=== PATIENT | female | born 1985 | race Caucasian/White ===

== ENCOUNTER 2023-02-24 10:07 | Emergency (ER) | payer OTHER, SELFPAY ==
[2023-02-24 10:15] VITALS: BP 129/87; PULSE 124; RESP 18; TEMP 36.3; O2SAT 92; BMI 46.1
--- NOTE | 2023-02-24 10:31 | CRLHL7_ITS ---
For Patients: As a result of the Century Cures Act, medical imaging exams and procedure reports are released immediately into your electronic medical record. You may view this report before your referring provider. If you have questions, please contact your health care provider. INDICATION: SOB HISTORY: Shortness of breath. COMPARISON: 03/30/2019. TECHNIQUE: Chest, 2 views. FINDINGS: Heart size and pulmonary vasculature are within normal limits. There are right middle lobe infiltrates present. Pneumonia is suspected. Radiographic followup is advised to document resolution. There is no sizable pleural effusion. There is no pneumothorax. The osseous structures are intact. IMPRESSION: 1. Right middle lobe infiltrate is consistent with pneumonia. 2. Radiographic followup is advised to document resolution. Dictated by Mil Graf MD @ 02/24/2023 10:56:48 AM Dictated by: Mil Graf MD @ 02/24/2023 10:56:55 (Electronically Signed)
[2023-02-24 10:50] LABS: Basophils Absolute Auto 0.03 K/uL (0.00-0.30); Basophils Percent Auto 0.4 % (0.0-3.0); Eosinophils Absolute Auto 0.34 K/uL (0.00-0.50); Eosinophils Percent Auto 4.5 % (0.0-7.0); Hematocrit 47.8 % (33.0-51.0); Hemoglobin* 15.9 gm/dL (12.0-16.0); Immature Granulocytes Abs Auto 0.03 K/uL (0.00-0.30); Immature Granulocytes Pct Auto 0.4 %; Lymphocytes Percent Auto 19.4 % (20-44); Mean Corpuscular HGB Conc 33 gm/dL (32-36); Mean Corpuscular Hemoglobin 29 pg (26-34); Mean Corpuscular Volume 88 fL (80-100); Monocytes Percent Auto 8.7 % (0.0-11.0); Neutrophils Absolute Auto 4.99 K/uL (1.7-7.0); Neutrophils Percent Auto 66.6 % (42.0-72.0); Platelet Count* 326 K/uL (140-440); Red Blood Count 5.41 m/uL (4.00-5.20); White Blood Count* 7.49 K/uL (4.50-11.00)
[2023-02-24] MEDS: predniSONE 10 MG TABLET 50 MG PO (10:58)
--- NOTE | 2023-02-24 10:58 | ED.GENADULT ---
HPI - General Adult General Chief complaint: Asthma Stated complaint: Trouble breathing Time Seen by Provider: 02/24/23 10:10 Source: patient Mode of arrival: ambulatory Limitations: no limitations History of Present Illness HPI narrative: 37-year-old female sent over from the urgent care for shortness of breath. Patient has history of asthma and has been having increasing shortness of breath for the last 4 days. She denies any fevers or chills. States that she coughs all day long and has a hard time controlling herself. Cough is generally nonproductive. She had an asthma attack on Sunday and has not seem to recover. She has been using her albuterol nebulizer every 3 hours without significant improvement. She states that this has happened to her before and she developed pneumonia. She had no treatment or workup done in the urgent care. Patient has a past medical history significant for obesity, asthma, hypertension, hyperlipidemia. Related Data Home Medications Medication Instructions Recorded Confirmed albuterol sulfate 90 mcg/actuation 1 - 2 puff inhalation Q4H PRN 02/24/23 02/24/23 aerosol inhaler dyspnea aspirin 81 mg tablet,delayed 81 mg PO DAILY 02/24/23 02/24/23 release dapagliflozin 10 mg tablet 10 mg PO DAILY 02/24/23 02/24/23 (Farxiga) fluticasone 250 mcg-salmeterol 50 1 ea inhalation 02/24/23 mcg/dose blistr powdr for inhalation (Advair Diskus) glipizide 10 mg tablet mg PO BID 02/24/23 ipratropium 0.5 mg-albuterol 3 mg 3 ml inhalation QID PRN dyspnea 02/24/23 02/24/23 (2.5 mg base)/3 mL nebulization soln lisinopril 5 mg tablet 5 mg PO DAILY 02/24/23 02/24/23 rosuvastatin 10 mg tablet 10 mg PO QPM 02/24/23 02/24/23 Previous Rx's Medication Instructions Recorded amoxicillin 500 mg tablet 1,000 mg PO TID 5 days #15 tabs 02/24/23 azithromycin 250 mg tablet 250 mg PO .As instructed #6 tabs 02/24/23 prednisone 20 mg tablet 20 mg PO DIRECTED 9 days #18 02/24/23 tabs Allergies Allergy/AdvReac Type Severity Reaction Status Date / Time cefuroxime [From Ceftin] Allergy Intermediate Verified 02/24/23 10:20 Review of Systems Status of ROS: Reports: 10 or more systems reviewed and unremarkable except as noted in History and below Exam Narrative: Exam Narrative: Obese, well-developed patient in no acute distress, coughs frequently. Alert and oriented. Answers questions appropriately. Mood and affect are appropriate. Thoughts are goal oriented and rational. Patient speaks in full sentences without needing to catch their breath. Patient is tachycardic, however not tachypneic. Saturating anywhere from 90-94% on room air. HEENT: Normocephalic atraumatic. Pupils are equally round reactive to light. Extraocular muscles are intact. Conjunctivae are moist without any icterus noted. Moist mucous membranes. Posterior pharynx is normal. Neck is soft without any lymphadenopathy or thyromegaly. No masses are appreciated. Cardiovascular: Heart is regular rate and rhythm S1 and S2 are present without any murmurs. Lungs: Patient has crackles on the right side. She has no wheezing noted. Abdomen: Soft and nontender nondistended with normal bowel sounds. Skin: Well perfused without any obvious rashes. Const: Vital Signs, click to edit/add: Vital Signs - 24 hr 02/24/23 10:15 Temperature 97.3 F L Pulse Rate [Pulse Oximeter] 124 H Respiratory Rate 18 Blood Pressure [Ri ght Upper Arm] 129/87 Pulse Oximetry 92 Oxygen Delivery Me thod Room Air Course Course Hospital Course: Patient was given oral prednisone. Breathing treatment was not done since the patient did not have any wheezing present. CBC was unremarkable. Chest x-ray was consistent with a right-sided pneumonia which was consistent with the abnormality on her physical exam. We did ambulate the patient to assess her oxygenation and she just dropped to 88% briefly and then quickly recovers, while still ambulating, to the low 90s. Vital Signs Vital signs: Initial Vital Signs Temperature 97.3 F L 02/24/23 10:15 Temperature Source Temporal Artery Scan 02/24/23 10:15 Pulse Rate 124 H 02/24/23 10:15 Respiratory Rate 18 02/24/23 10:15 Blood Pressure 129/87 02/24/23 10:15 Blood Pressure Mean 101 02/24/23 10:15 Blood Pressure Position Sitting 02/24/23 10:15 Pulse Oximetry 92 02/24/23 10:15 Oxygen Delivery Method Room Air 02/24/23 10:15 Vital Signs Temperature 97.3 F L 02/24/23 10:15 Pulse Rate 124 H 02/24/23 10:15 Respiratory Rate 18 02/24/23 10:15 Blood Pressure 129/87 02/24/23 10:15 Pulse Oximetry 92 02/24/23 10:15 Oxygen Delivery Method Room Air 02/24/23 10:15 Temperature 97.3 F L 02/24/23 10:15 Pulse Rate 124 H 02/24/23 10:15 Respiratory Rate 18 02/24/23 10:15 Blood Pressure 129/87 02/24/23 10:15 Pulse Oximetry 92 02/24/23 10:15 Oxygen Delivery Method Room Air 02/24/23 10:15 Medical Decision Making MDM Narrative Medical decision making narrative: 37-year-old female with pneumonia and asthma exacerbation. We discussed hospitalization at this time given that she is tachycardic and her oxygenation does drop below 90. Patient states that she does not wish to be hospitalized at this time and she feels like she can manage at home. given that she is otherwise young and believes that she can manage at home patient will be discharged at this time. She will be placed on on amoxicillin, azithromycin and prednisone. She has nebulizers at home that she will continue to use p.r.n.. And she understands that if she is worsening at all, I would have a very low threshold to return to the ER and patient is in agreement with this. Medical Records Medical records reviewed: Yes I reviewed the patient's medical records Lab Data Lab results reviewed: Yes I reviewed the patient's lab results Labs: Lab Results 02/24/23 Range/Units 10:45 WBC 7.49 (4.50-11.00) K/uL RBC 5.41 H (4.00-5.20) m/uL Hgb 15.9 (12.0-16.0) gm/dL Hct 47.8 (33.0-51.0) % MCV 88 (80-100) fL MCH 29 (26-34) pg MCHC 33 (32-36) gm/dL RDW Coeff of Jordin 13.0 (11.5-15.5) % Plt Count 326 (140-440) K/uL Neut % (Auto) 66.6 (42.0-72.0) % Lymph % (Auto) 19.4 L (20-44) % Webster % (Auto) 8.7 (0.0-11.0) % Eos % (Auto) 4.5 (0.0-7.0) % Baso % (Auto) 0.4 (0.0-3.0) % Neut # (Auto) 4.99 (1.7-7.0) K/uL Lymph # (Auto) 1.50 (0.90-2.90) K/uL Webster # (Auto) 0.70 (0.00-0.90) K/UL Eos # (Auto) 0.34 (0.00-0.50) K/uL Baso # (Auto) 0.03 (0.00-0.30) K/uL Imaging Data Chest x-ray: Attestation: I have reviewed the pertinent imaging results. Radiologist's impression: TECHNIQUE: Chest, 2 views. FINDINGS: Heart size and pulmonary vasculature are within normal limits. There are right middle lobe infiltrates present. Pneumonia is suspected. Radiographic followup is advised to document resolution. There is no sizable pleural effusion. There is no pneumothorax. The osseous structures are intact. IMPRESSION: 1. Right middle lobe infiltrate is consistent with pneumonia. 2. Radiographic followup is advised to document resolution. Discharge Plan Discharge Clinical Impression: Pneumonia, Asthma with acute exacerbation Patient Disposition: Home, Self-Care Condition: Stable Additional Instructions: If you are worsening, please return to the ER immediately. Otherwise take all antibiotic and steroids as prescribed. Prescriptions: New amoxicillin 500 mg tablet 1,000 mg PO TID 5 Days Qty: 15 0RF azithromycin 250 mg tablet 250 mg PO .As instructed Qty: 6 0RF Taper: Z-ORTIZ 500 mg Q24H for 1 Day and 0 Hour 250 mg Q24H for 4 Days and 0 Hour Rx Instructions: For 250 mg dose pack: take 500 mg today (day 1), then 250 mg for 4 days (days 2-5) prednisone 20 mg tablet 20 mg PO DIRECTED 9 Days Qty: 18 0RF Rx Instructions: 60 mg p.o. daily for 3 days (3 tablets daily on day 1-3), 40 mg daily for 3 days (2 tablets daily on days 4-6), 20 mg daily for 3 days (1 tablet daily on days 7-9). No Action fluticasone propion-salmeterol [Advair Diskus] 250-50 mcg/dose blister with device 1 ea INHALATION ipratropium-albuterol 0.5 mg-3 mg(2.5 mg base)/3 mL solution for nebulization 3 ml INHALATION QID PRN (Reason: dyspnea) glipizide 10 mg tablet PO BID aspirin 81 mg tablet,delayed release (DR/EC) 81 mg PO DAILY lisinopril 5 mg tablet 5 mg PO DAILY albuterol sulfate 90 mcg/actuation HFA aerosol inhaler 1 - 2 puff INHALATION Q4H PRN (Reason: dyspnea) rosuvastatin 10 mg tablet 10 mg PO QPM Farxiga 10 mg tablet 10 mg PO DAILY Follow Up/Referrals: Paz Winn MD [Primary Care Provider] - Stand [facility]
[2023-02-24 11:16] LABS: Slide Review Reflex No
[2023-02-24 11:30] LABS: PCR FLU A Negative PCR FLU A (Negative); PCR FLU B Negative PCR FLU B (Negative); PCR RSV Negative PCR RSV (Negative)
--- NOTE | 2023-02-24 11:33 | ED.NURSE ---
Oxygen 93% at rest on RA Lowest while ambulating 88% on RA - quickly recovers to 92% while still ambulating.
[2023-02-24 11:41] LABS: SARS PCR* Negative SARS-CoV-2 (Negative)
== END 2023-02-24 11:56 | disposition home or self-care (01) ==
PROVIDERS: Emergency Provider Family Medicine; PCP Family Medicine
DX: J18.9 Pneumonia, unspecified organism (principal); J45.901 Unspecified asthma with (acute) exacerbation
CPT/HCPCS: 36415; 71046; 85025; 87631; 99284; J7512